=== PATIENT | female | born 1995 | race Caucasian/White ===

== ENCOUNTER 2024-04-20 09:25 | Emergency (ER) | payer SELFPAY ==
[2024-04-20] MEDS ORDERED: NA CHLORIDE 0.9% 1,000 ML ONE (09:40)
[2024-04-20 10:16] LABS: Absolute Basophils 0.1 K/uL (0-0.5); Absolute Eosinophils 0.1 K/uL (0-0.5); Absolute Lymphocytes (CBC) 2.4 K/uL (0.7-4.9); Absolute Monocytes 0.3 K/uL (0.1-1.3); Absolute Neutrophil 5.9 K/uL (1.8-8.0); Basophils % 1.4 % (0-1.3); Eosinophils % 1.6 % (0-4.4); Hematocrit 40.9 % (36.0-45.0); Hemoglobin 13.6 g/dL (12.0-15.0); Lymphocytes % 27.1 % (15.3-44.8); MCH 28.9 pg (27.0-35.0); MCHC 33.2 g/dL (32.0-36.0); MPV 7.1 fL (7.6-11.3); Monocytes % 3.4 % (3.3-12.3); Neutrophils % 66.5 % (41.7-73.7); Nucleated Red Blood Cells % 0.1 % (0-0); Platelets 493 thou/uL (152-406); Red Cell Distribution Width 14.2 % (12.1-15.2)
[2024-04-20 10:26] LABS: Anion Gap 6.1 mEq/L (5.0-15.0); Potassium 4.1 mEq/L (3.5-5.1)
[2024-04-20 10:27] LABS: Specific Gravity 1.013 (1.005-1.030); Sqamous Epithelial <5 /HPF (None Seen); Urine Bacteria >50 /HPF (<20); Urine Bilirubin NEGATIVE (Negative); Urine Blood 1+ (Negative); Urine Clarity Clear (Clear); Urine Color Colorless (Yellow); Urine Culture Reflex Order NOT NEEDED; Urine Glucose NEGATIVE (Negative); Urine Ketones NEGATIVE (Negative); Urine Micro Reflex YN NO BILL MICROSCOPIC; Urine Nitrite NEGATIVE (Negative); Urine Protein NEGATIVE (Negative); Urine RBC <5 /HPF (None Seen); Urine Urobilinogen Normal (Normal); Urine WBC <5 /HPF (<5)
--- NOTE | 2024-04-20 10:55 | ER ---
Nurse's Notes [facility] Name: Wilma Hernandez Age: 29 yrs Sex: Female : 1995 Arrival Date: 04/20/2024 Time: :25 Bed 13 Private MD: Diagnosis: Abnormal uterine and vaginal bleeding, unspecified;Weakness Presentation: 04/20 09:28 Chief complaint: EMS states: generalized weakness, tingling in arms/leg/lips, slight iw breathing difficulty , had a heavy period X 3 weeks. Coronavirus screen: At this time, the client does not indicate any symptoms associated with coronavirus-19. Ebola Screen: No symptoms or risks identified at this time. Initial Sepsis Screen: Does the patient meet any 2 criteria? No. Patient's initial sepsis screen is negative. Does the patient have a suspected source of infection? No. Patient's initial sepsis screen is negative. Risk Assessment: Do you want to hurt yourself or someone else? Patient reports no desire to harm self or others. Onset of symptoms was April 20, 2024. 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 - Infectious Disease History:: Denies. - Social history:: Smoking status: Reported history of juuling and/or vaping. Screenin:05 [facility] ED Fall Risk Assessment (Adult) History of falling in the last 3 months, db including since admission No falls in past 3 months (0 pts) Confusion or Disorientation No (0 pts) Intoxicated or Sedated No (0 pts) Impaired Gait No (0 pts) Mobility Assist Device Used No (0 pt) Altered Elimination No (0 pt) Score/Fall Risk Level 0 - 2 = Low Risk Oriented to surroundings, Maintained a safe environment. Abuse screen: Denies threats or abuse. Denies injuries from another. Nutritional screening: No deficits noted. Tuberculosis screening: No symptoms or risk factors identified. Assessment: 10:05 Reassessment: Patient appears in no apparent distress at this time. Patient and/or db family updated on plan of care and expected duration. Pain level reassessed. Patient is alert, oriented x 3, equal unlabored respirations, skin warm/dry/pink. General: Appears in no apparent distress. comfortable, Behavior is calm, cooperative. Pain: Denies pain. : Reports vaginal bleeding that is. 11:27 Reassessment: Patient appears in no apparent distress at this time. Patient and/or db family updated on plan of care and expected duration. Pain level reassessed. Patient is alert, oriented x 3, equal unlabored respirations, skin warm/dry/pink. Vital Signs: 09:36 BP 120 / 86; Pulse 94; Resp 16; Temp 98.1; Pulse Ox 99% on R/A; Weight 54.43 kg; Height iw 8 ft. 6 in. ; Pain 0/10; 09:36 Body Mass Index 8.11 (54.43 kg, 259.08 cm) iw 09:36 Pain Scale: Adult iw ED Course: 09:26 Patient arrived in ED. ec2 09:26 Abhinav Rivera MD is Attending Physician. ec2 09:29 Triage completed. iw 09:36 Arm band placed on. iw 09:43 Abbie Olivas RN is Primary Nurse. iw 10:05 Patient has correct armband on for positive identification. Bed in low position. Call db light in reach. Side rails up X 1. Provided Education on: VAGINAL BLEEDING. Pulse ox on. NIBP on. Warm blanket given. 10:05 No provider procedures requiring assistance completed. db 10:07 UAM Sent. cc6 10:07 Type And Screen Sent. cc6 10:07 Test, Serum Sent. cc6 10:07 Basic Metabolic Panel Sent. cc6 10:07 CBC with Diff Sent. cc6 10:07 Initial lab(s) drawn, by ut, sent to lab. Urine collected: clean catch specimen, clear, cc6 EKG done. Inserted saline lock: 20 gauge in right antecubital area, using aseptic technique. Blood collected. Flushed with 10 mL NS. 11:27 IV discontinued, intact, bleeding controlled, No redness/swelling at site. db Administered Medications: 10:10 Drug: NS 0.9% IV 500 ml 500 ml IV at 1 bolus once; to be given as a bolus over 30 db minutes Volume: 500 ml; Route: IV; Rate: 1 bolus; Site: right antecubital; 11:00 Follow up: Response: No adverse reaction; IV Status: Completed infusion; IV Intake: db 500ml Medication: 10:05 VIS not applicable for this client. db Intake: 11:00 IV: 500ml; Total: 500ml. db Outcome: 10:55 Discharge ordered by . ec2 11:27 Discharged to home ambulatory, db 11:27 Condition: stable 11:27 Discharge instructions given to patient, Instructed on discharge instructions, follow up and referral plans. 11:28 Patient left the ED. db Signatures: Abbie Olivas RN RN iw Meli Wilcox RN RN db Abhinav Rivera MD MD ec2 Siobhan Yang cc6
--- NOTE | 2024-04-20 10:55 | EDPHYS ---
Physician Documentation [facility] Name: Wilma Hernandez Age: 29 yrs Sex: Female : 1995 Arrival Date: 04/20/2024 Time: : Bed 13 Private MD: ED Physician Abhinav Rivera HPI: 04/20 09:33 This 29 yrs old Female presents to ER via EMS with complaints of General ec2 Weakness. 09:33 This 29 yrs old Female presents to ER via EMS with complaints of General ec2 Weakness. 09:33 Patient arrives today for evaluation of generalized weakness. Patient reports that she ec2 has been experiencing worsening generalized weakness ongoing for the past several days to weeks. Reports history of anemia, history of iron deficiency. Patient reports no recent fevers or chills or nausea or vomiting, denies diarrhea. Denies urinary complaints. States that she been having a regular period for the past several weeks.. 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 - Infectious Disease History:: Denies. - Social history:: Smoking status: Reported history of juuling and/or vaping. ROS: 09:33 Constitutional: as per hpi ec2 Exam: :33 Constitutional: GEN: NAD Head: atraumatic Eyes: EOMI Ears: External ears are ec2 normal. CV: regular rate LUNGS: no respiratory distress ABD: non-distended, soft, nontender, guarding, not rigid SKIN: no evidence of rashes MSK: no evidence of trauma Vital Signs: 09:36 BP 120 / 86; Pulse 94; Resp 16; Temp 98.1; Pulse Ox 99% on R/A; Weight 54.43 kg; Height iw 8 ft. 6 in. ; Pain 0/10; 09:36 Body Mass Index 8.11 (54.43 kg, 259.08 cm) iw 09:36 Pain Scale: Adult iw MDM: 09:26 Medical Screening Exam initiated ec2 09:33 Data reviewed: vital signs, nurses notes. ED course: Patient arrives today for ec2 evaluation of generalized weakness. Examination is unrevealing. Will obtain lab work, EKG, urine studies. Differential diagnosis will include processes such as anemia, dehydration, arrhythmia, electrolyte disturbances.. 10:05 ED course: EKG independently reviewed and interpreted by me, shows normal sinus rhythm, ec2 rate of 89, no acute ST segment elevations, intervals are nonactionable.. 10:54 ED course: Labs are unrevealing. On reassessment patient remains well-appearing in no ec2 acute distress. No evidence of anemia or dehydration or . 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 Return precautions given.. 04/20 09:27 Order name: Basic Metabolic Panel; Complete Time: 10:54 ec2 04/20 09:27 Order name: CBC with Diff; Complete Time: 10:26 ec2 04/20 09:27 Order name: Test, Serum; Complete Time: 10:54 ec2 04/20 09:27 Order name: Type And Screen ec2 04/20 09:27 Order name: UAM; Complete Time: 10:54 ec2 04/20 09:27 Order name: Cardiac monitoring; Complete Time: 10:07 ec2 04/20 09:27 Order name: EKG - Nurse/Tech; Complete Time: 10:07 ec2 04/20 09:27 Order name: IV Saline Lock; Complete Time: 10:07 ec2 04/20 09:27 Order name: Labs collected and sent; Complete Time: 10:07 ec2 04/20 09:27 Order name: O2 Per Protocol; Complete Time: 10:07 ec2 04/20 09:27 Order name: O2 Sat Monitoring; Complete Time: 10:07 ec2 Administered Medications: 10:10 Drug: NS 0.9% IV 500 ml 500 ml IV at 1 bolus once; to be given as a bolus over 30 db minutes Volume: 500 ml; Route: IV; Rate: 1 bolus; Site: right antecubital; 11:00 Follow up: Response: No adverse reaction; IV Status: Completed infusion; IV Intake: db 500ml Disposition Summary: 04/20/24 10:55 Discharge Ordered Notes: Location: Home ec2 Condition: Stable ec2 Diagnosis - Abnormal uterine and vaginal bleeding, unspecified ec2 - Weakness ec2 Followup: ec2 - With: Private Physician - When: - Reason: Re-evaluation by your physician Discharge Instructions: - Discharge Summary Sheet ec2 - Weakness ec2 - Abnormal Uterine Bleeding, [id number]-zr-[id number] ec2 Forms: - Medication Reconciliation Form ec2 - Antibiotic Education ec2 - Prescription Opioid Use ec2 - Patient Portal Instructions ec2 - Leadership Thank You Letter ec2 Signatures: Dispatcher [employer] Abbie Zamudio RN RN iw Meli Wilcox RN RN Abhinav Levin MD MD ec2 Corrections: (The following items were deleted from the chart) 09: 09:27 BASIC METABOLIC PANEL+C.LAB.BRZ ordered. EDMS EDMS 09:27 CBC+H.LAB.BRZ ordered. EDMS EDMS 09:27 TEST, SERUM+SC.LAB.BRZ ordered. EDMS EDMS : 09:27 TYPE AND SCREEN+BB.LAB.BRZ ordered. EDMS EDMS : 09:27 Urinalysis W/Microscopic+U.LAB.BRZ ordered. EDMS EDMS
[2024-04-20 11:45] VITALS: BP 120/86; TEMP 98.1; O2SAT 99
--- NOTE | 2024-05-01 11:24 | EKG ---
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
== END 2024-04-20 11:28 | disposition home or self-care (01) ==
LOC: ER 09:25
DX: R53.1 Weakness (principal); N93.9 Abnormal uterine and vaginal bleeding, unspecified; Z87.891 Personal history of nicotine dependence
CPT/HCPCS: 36415; 80048; 81001; 84703; 85025; 86850; 86900; 86901; 93005; 96360; 99284; J7030